=== PATIENT | female | born 1995 | race African-American/Black ===

== ENCOUNTER 2018-02-16 12:33 | Emergency (ER) | payer BC ==
[2018-02-16 13:43] VITALS: BP 121/78
--- NOTE | 2018-02-16 14:01 | UC ---
Respiratory Complaint HPI - HPI Summary HPI Summary: 22 y/o female presents to the urgent care c/o Woke up with right sternal pain radiating to back and right posterior shoulder tingling (five minutes) yesterday morning, but pain resolved throught the day. Pain is absent at rest but is present with certain movements. Denies injury or change in activity other than increased walking. Had a "pretty bad cold" two to three weeks ago. - History of Current Complaint Chief Complaint: UCChestPain Stated Complaint: CHEST AND RIGHT SHOULDER PAIN Time Seen by Provider: 02/16/18 13:59 Hx Obtained From: Patient Hx Last Menstrual Period: 02/15/18 Onset/Duration: Sudden Onset, Lasting Days - 1 day, Still Present Timing: Intermittent Episodes Severity Initially: Mild Pain Intensity: 3 Pain Scale Used: 0-10 Numeric Aggravating Factors: Exertion, Other - raising RT arm Alleviating Factors: OTC Meds Associated Signs And Symptoms: Positive: Negative - Risk Factors Pulmonary Embolism Risk Factors: Negative Cardiac Risk Factors: Negative Pseudomonas Risk Factors: Negative Tuberculosis Risk Factors: Negative - Allergies/Home Medications Allergies/Adverse Reactions: Allergies Allergy/AdvReac Type Severity Reaction Status Date / Time egg Allergy Facial Verified 02/16/18 13:40 Swelling PMH/Surg Hx/FS Hx/Imm Hx Previously Healthy: Yes - Pt denies PMHX - Surgical History Surgical History: None - Family History Known Family History: Positive: Diabetes - Type I - Social History Occupation: Student Lives: With Family Alcohol Use: Occasionally Substance Use Type: None Smoking Status (MU): Never Smoked Tobacco - Immunization History Vaccination Up to Date: Yes Review of Systems Constitutional: Negative Skin: Negative Eyes: Negative ENT: Negative Respiratory: Negative Cardiovascular: Negative Gastrointestinal: Negative Genitourinary: Negative Motor: Negative Neurovascular: Negative Musculoskeletal: Other: - RT side chest pain w/ movement Neurological: Negative Psychological: Negative Is Patient Immunocompromised?: No All Other Systems Reviewed And Are Negative: Yes Physical Exam - Summary Physical Exam Summary: VITAL SIGNS: Reviewed. GENERAL: Patient is a well developed and nourished female who is sitting comfortable in the examining table. Patient is not in any acute respiratory distress. HEAD AND FACE: No signs of trauma. No ecchymosis, hematomas or skull depressions. No sinus tenderness. EYES: PERRLA, EOMI x 2, No injected conjunctiva, no nystagmus. No photophobia. EARS: Hearing grossly intact. Ear canals and tympanic membranes are within normal limits. Nose: edematous and erythematous nasal mucosa w/ clear nasal discharge. MOUTH: Positive no erythema, no tonsillar enlargement. Uvula in midline. NECK: Supple, trachea is midline, Positive anterior cervical lymphadenopathy, no JVD, no carotid bruit, no c-spine tenderness, neck with full ROM. No meningeal signs, no Kernig's or brudzinskis signs. CHEST: Symmetric, no tenderness at palpation LUNGS: Clear to auscultation bilaterally. No wheezing or crackles. CVS: Regular rate and rhythm, S1 and S2 present, no murmurs or gallops appreciated. ABDOMEN: Soft, non-tender. No signs of distention. No rebound no guarding, and no masses palpated. Bowel sounds are normal. EXTREMITIES: FROM in all major joints, no edema, no cyanosis or clubbing. NEURO: Alert and oriented x 3. No acute neurological deficits. Speech is normal and follows commands. SKIN: Dry and warm Triage Information Reviewed: Yes Vital Signs: Initial Vital Signs Temp 98.4 F 02/16/18 13:37 Pulse 66 02/16/18 13:37 Resp 16 02/16/18 13:37 BP 121/78 02/16/18 13:37 Pulse Ox 100 02/16/18 13:37 Diagnostic Evaluation - Laboratory O2 Sat by Pulse Oximetry: 100 Respiratory Course/Dx - Differential Dx/Diagnosis Differential Diagnosis/HQI/PQRI: Lower Resp Infection, Pneumothorax, Other - [place] , Costochondritis Provider Diagnoses: 1- Costochondritis Discharge - Discharge Plan Condition: Stable Disposition: HOME Prescriptions: Ibuprofen TAB* [Motrin TAB* 800 MG] 800 mg PO Q6H PRN #30 tab PRN Reason: Pain Patient Education Materials: Costochondritis (ED) Referrals: [facility] [place] [facility] [place]] - 1 Week Additional Instructions: 1-Please take ibuprofen PO q6-8hrs prn as instructed after meals to alleviate pain and swelling. Increase fluid intake, eat well, rest and avoid strenuous exercise or work out w/ your chest at the [facility]. Avoid heavy lifting 2-If symptoms do not improve or worsen please return to the urgent care or f/u with your PCP in 1 week for further evaluation and treatment. - Billing Disposition and Condition Condition: STABLE Disposition: Home
--- NOTE | 2018-02-17 07:13 | UC ---
Discharge - Sign-Out/Discharge Documenting (check all that apply): Post-Discharge Follow Up All imaging exams completed and their final reports reviewed: No Studies - Discharge Plan Condition: Stable Disposition: HOME Prescriptions: Ibuprofen TAB* [Motrin TAB* 800 MG] 800 mg PO Q6H PRN #30 tab PRN Reason: Pain Patient Education Materials: Costochondritis (ED) Referrals: [facility] [place] [place] [facility] [Outside] - 1 Week Additional Instructions: 1-Please take ibuprofen PO q6-8hrs prn as instructed after meals to alleviate pain and swelling. Increase fluid intake, eat well, rest and avoid strenuous exercise or work out w/ your chest at the [facility]. Avoid heavy lifting 2-If symptoms do not improve or worsen please return to the urgent care or f/u with your PCP in 1 week for further evaluation and treatment. - Billing Disposition and Condition Condition: STABLE Disposition: Home
== END 2018-02-16 14:49 | disposition home or self-care (01) ==
LOC: UCCORT 12:33
DX: M94.0 Chondrocostal junction syndrome [Tietze] (principal)
CPT/HCPCS: 36415; 86703; 99202; G0463